=== PATIENT | female | born 1960 | race Caucasian/White ===

== ENCOUNTER 2017-12-12 00:54 | Outpatient (CLI) | payer MEDICAID, SELFPAY ==
[2017-12-12 13:04] LABS: ALT 265 U/L (12-78); AST 101 U/L (15-37); Albumin 3.8 g/dL (3.4-5.0); Alkaline Phosphatase 96 U/L (46-116); Anion Gap 11.2 mmol/L (3-11); BUN 16 mg/dL (7-18); Bilirubin, Total 0.3 mg/dL (0.2-1.0); CO2 29.8 mmol/L (21.0-32.0); CREATININE 0.88 mg/dL (0.55-1.02); Calcium 9.1 mg/dL (8.5-10.1); Chloride 98 mmol/L (98-107); Glucose 168 mg/dL (70-100); Potassium 4.4 mmol/L (3.5-5.1); Sodium 139 mmol/L (136-145); Total Protein 6.9 g/dL (6.4-8.2)
[2017-12-12 13:19] LABS: Cholesterol 191 mg/dL (50-200); HDL Cholesterol 36 mg/dL (40-60); LDL CHOLESTEROL 116 mg/dL (<100); Triglyceride 349 mg/dL (30-150)
[2017-12-12 15:26] LABS: Hemoglobin A1C 7.8 % (4.5-6.2)
== END 2017-12-12 01:14 ==
PROVIDERS: PCP Nurse Practitioner Family; Visit Provider Nurse Practitioner Family
DX: E11.9 Type 2 diabetes mellitus without complications (principal)
CPT/HCPCS: 36415; 80053; 80061; 83721; 83036

== ENCOUNTER 2018-01-17 07:00 | Day surgery (SDC) | payer MEDICAID, SELFPAY ==
--- NOTE | 2018-01-17 06:41 | W.PM.ENDDOP ---
Date of service: 01/17/18 Time of Service: : Endoscopy Report DATE OF PROCEDURE: 01/17/18 PRE-OP DIAGNOSIS: Hx of GERD, Family history of esophageal cancer POST-OP DIAGNOSIS: other (mild chronic gastritis, mild reflux esophagitis, multiple gastric polyps) PROCEDURE: EGD with bx SURGEON: Lien Mata ANESTHESIA: MAC (Salvador Gilmore, [employer] GR[employer] FEEDER / ASA 2) ESTIMATED BLOOD LOSS: 3 PATHOLOGY: other (Gastric antrum bx, Gastric polyp bx, GE junction bx) COMPLICATIONS: None DISPOSITION: same day INDICATIONS: Mrs. Robbins is a pleasant 57-year-old female who was seen in the office for a presumed history of reflux 6 was started 6 years ago. She was started on omeprazole 6 years ago. She has a family history of esophageal cancer. She has no symptoms on the omeprazole. Risks, benefits, complications of the procedure were reviewed with her and she wished to proceed. No guarantees were given or implied. PREP: Miralax/Dulcolax PROCEDURE START TIME: : PROCEDURE END TIME: : FINDINGS: 1. Mild Chronic gastritis 2. Multiple gastric polyps 3. Mild reflux esophagitis PROCEDURE DESCRIPTION: After informed consent was obtained the patient was take to the procedure room and placed in a supine position. Monitors were applied and a time out was done. The patients name, date of , procedure type, allergies to medications and metal in their body was reviewed. A bite block was placed and the patient was sedated. Once sedated and comfortable the gastroscope was introduced and advanced through the oropharynx which was grossly normal into the esophagus. The proximal and mid-esophagus were normal. In the distal esophagus there was mild inflammation noted at the GE junction. The scope was advanced into the stomach and through the pylorus into the 3rd portion of the duodenum. The duodenum was noted to be normal. The scope was retracted back into the stomach and biopsies were done of the antrum to rule out H. pylori. There were no ulcers. The scope was retroflexed. The cardia and fundus were noted to be normal. There was no hiatal hernia noted. There were numerous polyps throughout the stomach. the larger 2 polyps were biopsied. The scope was retracted back into the esophagus and biopsies were done of the GE junction to rule out Shipley's. The Z line was regular. The GE junction was at 36 cm. The scope was removed and the patient was woken up and taken back to [facility] in stable condition. Follow up: as needed unless the biopsies show something unusual. Continue on Omeprazole.
--- NOTE | 2018-01-17 06:43 | PDOC.DSDIS_ITS ---
Discharge Plan Disposition Patient Disposition: HOME Condition: Good Discharge Details Reason For Visit: GERD Attending Provider: Lien Mata Primary Care Provider: Mira Rizzo Home Meds and New Rx's Prescriptions: Continue rosuvastatin 10 mg tablet 10 mg PO DAILY Qty: 90 RF: 4 omeprazole 20 mg capsule,delayed release(DR/EC) 20 mg PO DAILY Qty: 90 RF: 4 losartan-hydrochlorothiazide [Hyzaar] 100-25 mg tablet 1 tab PO QAM Qty: 90 RF: 4 escitalopram oxalate 10 mg tablet 10 mg PO DAILY Qty: 90 RF: 4 lancets [FreeStyle Lancets] 28 gauge misc 1 ea Intradermal DAILY Qty: 100 RF: 4 blood sugar diagnostic [FreeStyle Lite Strips] strip 1 strip Miscellaneous DAILY Qty: 100 RF: 4 albuterol sulfate [ProAir HFA] 90 mcg/actuation HFA aerosol inhaler 2 puff Inhalation .Q4H - Q6H PRN (Reason: shortness of breath or wheezing) Qty: 8.5 RF: 4 albuterol sulfate 2.5 mg /3 mL (0.083 %) solution for nebulization 2.5 mg Inhalation Q4H PRN Qty: 90 RF: 1 benzonatate 100 mg capsule 100 mg PO QID PRNRF: 0 blood-glucose meter [FreeStyle Lite Meter] 1 EACH kit 1 ea Miscellaneous as directed Qty: 1 RF: 0 multivitamin 1 EACH capsule 1 ea PO DAILY RF: 0 ibuprofen 600 MG tablet 600 mg PO BID prn Qty: 180 RF: 4 fluticasone 16 GM spray,suspension 2 spray NS daily prn Qty: 1 RF: 5 loratadine [Claritin Liqui-Gel] 10 MG capsule 10 mg PO DAILY Qty: 90 RF: 3 potassium chloride [Klor-Con M20] 20 MEQ tablet,ER particles/crystals 1 tab PO QAM Qty: 90 RF: 4 metformin 500 mg tablet extended release 24 hr 1,000 mg PO BID Qty: 360 RF: 4 Discharge Instructions Instructions: Upper Endoscopy (DC), Gastric Polyps (DC), Gastritis (DC), Diet for Stomach Ulcers and Gastritis (GEN) Additional Instructions: Findings: Mild chronic gastritis Gastric polyps- most likely due to inflammation and Ant-acid medication Follow up: as needed New Medications: none. Continue Omeprazole daily Please call if you develop: Fevers >101.5 Nausea or Vomiting Abdominal pain that is not transient 1. Because there will be medication in your system for the next 24 hours, you may feel a little sleepy. Your coordination will be affected. Therefore: a. Do not drive or operate dangerous equipment for 24 hours. b. Do not drink alcohol beverages for 24 hours (not even beer). c. Plan to go home and rest for the day. 2. Generally there are no restrictions on your activity after a day or so has gone by, but you may feel a bit fatigued for a few days. 3 After you arrive home you may have a light meal and return to a normal diet as you can tolerate it without feeling sick to your stomach. 4. After surgery, you may feel pain or discomfort. This should be only transient , but if it persists please contact your doctor. 5. If there are any questions regarding the findings of your procedure, please feel free to contact your doctor. 6. If you are unable to contact your doctor with a problem, contact the hospital at [phone]. 7. Continue all your regular medications unless directed otherwise. I understand the above instructions and have no questions. Signature of Patient or Responsible Adult Escort Date/Time Name of Responsible Adult Escort Signature of Nurse Date/Time Activity:: Activity as Tolerated Diet:: low acid Discharge Orders Discharge Orders: Discharge Order (Routine); Ordered 01/17/18 Ordered By: Lien Mata DS: Diagnosis Discharge Diagnosis (1) History of esophagogastroduodenoscopy (EGD): Status: Chronic (2) Chronic gastritis: Status: Acute
[2018-01-17] MEDS: Lactated Ringers 1,000 ML 80 ML IV (07:12)
[2018-01-17 07:22] VITALS: BP 161/97; PULSE 80; RESP 18; TEMP 36.5; O2SAT 95
--- NOTE | 2018-01-17 08:29 | STOM_PTH ---
PATIENT: Dorian Robbins LOC: [facility] U#:[id number] AGE/SX: 57/F ROOM: RE01/17/[address]: Lien Mata MD : 1960 BED: DIS: 01/17/2018 SPEC #: [id number] RECD: 01/17/18 12:44 STATUS: DANIEL RE #: [id number] HARPREET: 01/17/18 08:[address]: Lien Mata DEPT: Surgical Specimen RECD BY: Desiree Saleem ENTERED: 01/17/18 12:45 SP TYPE: STOMACH OTHR DR: Mira Rizzo, [employer] D[employer]LL[employer] HELPER Tissues: 1 - STOMACH BIOPSY 2 - STOMACH BIOPSY 3 - ESOPHAGUS BIOPSY Procedures: GROSS AND MICRO LEVEL 4 Comments: [id number]
[2018-01-17 09:04] VITALS: BP 122/83; PULSE 80; RESP 20; TEMP 37.3; O2SAT 94
== END 2018-01-17 09:25 | disposition home or self-care (01) ==
LOC: SUR 07:01
PROVIDERS: PCP Nurse Practitioner Family; Visit Provider Surgery
PROC: 0DJ68ZZ Inspection of Stomach, Via Natural or Artificial Opening Endoscopic (ICD-10-PCS; CPT 43235; principal; 2018-01-17 08:30)
DX: K21.9 Gastro-esophageal reflux disease without esophagitis (principal); K31.89 Other diseases of stomach and duodenum; K31.7 Polyp of stomach and duodenum; K31.9 Disease of stomach and duodenum, unspecified; Z80.0 Family history of malignant neoplasm of digestive organs; E11.9 Type 2 diabetes mellitus without complications; Z79.84 Long term (current) use of oral hypoglycemic drugs; I10 Essential (primary) hypertension
CPT/HCPCS: 43239; 88305

== ENCOUNTER 2018-03-14 02:19 | Outpatient (CLI) | payer MEDICAID, SELFPAY ==
[2018-03-14 08:20] LABS: Hemoglobin A1C 7.5 % (4.5-6.2)
[2018-03-14 08:48] LABS: ALT 143 U/L (12-78); AST 76 U/L (15-37); Albumin 4.1 g/dL (3.4-5.0); Alkaline Phosphatase 102 U/L (46-116); Anion Gap 8.5 mmol/L (3-11); BUN 15 mg/dL (7-18); Bilirubin, Total 0.5 mg/dL (0.2-1.0); CO2 29.5 mmol/L (21.0-32.0); Chloride 99 mmol/L (98-107); Cholesterol 115 mg/dL (50-200); Estimated GFR 57.35 (mL/min/1.73m2); Glucose 156 mg/dL (70-100); HDL Cholesterol 43 mg/dL (40-60); LDL CHOLESTEROL 51 mg/dL (<100); Magnesium 1.9 mg/dL (1.8-2.4); Potassium 4.4 mmol/L (3.5-5.1); Sodium 137 mmol/L (136-145); Total Protein 7.4 g/dL (6.4-8.2); Triglyceride 126 mg/dL (30-150)
== END 2018-03-14 02:39 ==
PROVIDERS: PCP Nurse Practitioner Family; Visit Provider Nurse Practitioner Family
DX: E11.9 Type 2 diabetes mellitus without complications (principal); E78.5 Hyperlipidemia, unspecified; I10 Essential (primary) hypertension; K76.0 Fatty (change of) liver, not elsewhere classified; K21.9 Gastro-esophageal reflux disease without esophagitis
CPT/HCPCS: 36415; 80053; 80061; 83721; 83036; 83735

== ENCOUNTER 2018-06-19 11:01 | Outpatient (CLI) | payer MEDICAID, SELFPAY ==
[2018-06-19 07:52] LABS: Hemoglobin A1C 7.4 % (4.5-6.2)
[2018-06-19 08:29] LABS: Anion Gap 12.1 mmol/L (3-11); BUN 20 mg/dL (7-18); CO2 28.9 mmol/L (21.0-32.0); CREATININE 0.95 mg/dL (0.55-1.02); Calcium 9.9 mg/dL (8.5-10.1); Chloride 98 mmol/L (98-107); Glucose 127 mg/dL (70-100); Potassium 4.1 mmol/L (3.5-5.1); Sodium 139 mmol/L (136-145)
== END 2018-06-19 11:21 ==
PROVIDERS: PCP Nurse Practitioner Family; Visit Provider Nurse Practitioner Family
DX: E11.9 Type 2 diabetes mellitus without complications (principal)
CPT/HCPCS: 36415; 80048; 83036

== ENCOUNTER 2018-09-18 01:08 | Outpatient (CLI) | payer MEDICAID, SELFPAY ==
[2018-09-18 09:29] LABS: Hemoglobin A1C 6.8 % (4.5-6.2)
[2018-09-18 09:57] LABS: ALT 68 U/L (12-78); AST 27 U/L (15-37); Albumin 3.9 g/dL (3.4-5.0); Alkaline Phosphatase 84 U/L (46-116); Anion Gap 11.9 mmol/L (3-11); BUN 18 mg/dL (7-18); Bilirubin, Total 0.2 mg/dL (0.2-1.0); CO2 30.1 mmol/L (21.0-32.0); CREATININE 0.82 mg/dL (0.55-1.02); Calcium 9.7 mg/dL (8.5-10.1); Chloride 101 mmol/L (98-107); Glucose 126 mg/dL (70-100); Potassium 4.8 mmol/L (3.5-5.1); Sodium 143 mmol/L (136-145)
== END 2018-09-18 01:28 ==
PROVIDERS: PCP Nurse Practitioner Family; Visit Provider Nurse Practitioner Family
DX: E11.9 Type 2 diabetes mellitus without complications (principal); K76.0 Fatty (change of) liver, not elsewhere classified
CPT/HCPCS: 36415; 80053; 83036

== ENCOUNTER 2018-12-19 02:37 | Outpatient (CLI) | payer MEDICAID, SELFPAY ==
[2018-12-19 10:49] LABS: ALT 103 U/L (14-59); AST 50 U/L (15-37); Albumin 4.2 g/dL (3.4-5.0); Alkaline Phosphatase 86 U/L (46-116); Anion Gap 9.1 mmol/L (3-11); BUN 17 mg/dL (7-18); Bilirubin, Total 0.3 mg/dL (0.2-1.0); CO2 30.9 mmol/L (21.0-32.0); CREATININE 0.94 mg/dL (0.55-1.02); Calcium 9.4 mg/dL (8.5-10.1); Chloride 101 mmol/L (98-107); Glucose 149 mg/dL (70-100); Potassium 4.9 mmol/L (3.5-5.1); Sodium 141 mmol/L (136-145); TSH (W/Ref FT4) 3.03 uIU/mL (0.36-3.74); Total Protein 7.3 g/dL (6.4-8.2)
== END 2018-12-19 02:57 ==
PROVIDERS: PCP Nurse Practitioner Family; Visit Provider Nurse Practitioner Family
DX: E11.9 Type 2 diabetes mellitus without complications (principal); R53.83 Other fatigue
CPT/HCPCS: 36415; 80053; 84443

== ENCOUNTER 2019-03-19 02:17 | Outpatient (CLI) | payer MEDICAID, SELFPAY ==
[2019-03-19 08:27] LABS: Anion Gap 10.3 mmol/L (3-11); BUN 15 mg/dL (7-18); CO2 28.7 mmol/L (21.0-32.0); CREATININE 0.95 mg/dL (0.55-1.02); Calcium 8.9 mg/dL (8.5-10.1); Chloride 100 mmol/L (98-107); Glucose 139 mg/dL (74-106); Potassium 4.5 mmol/L (3.5-5.1); Sodium 139 mmol/L (136-145)
[2019-03-19 08:38] LABS: Hemoglobin A1C 6.8 % (3.8-5.6)
== END 2019-03-19 02:37 ==
PROVIDERS: PCP Nurse Practitioner Family; Visit Provider Nurse Practitioner Family
DX: E11.9 Type 2 diabetes mellitus without complications (principal)
CPT/HCPCS: 36415; 80048; 83036

== ENCOUNTER 2019-08-30 12:01 | Outpatient (REF) | payer MEDICAID, SELFPAY ==
[2019-08-30 13:15] LABS: ALT 66 U/L (14-59); AST 26 U/L (15-37); Albumin 4.4 g/dL (3.4-5.0); Alkaline Phosphatase 89 U/L (46-116); Anion Gap 10.8 mmol/L (3-11); BUN 14 mg/dL (7-18); Bilirubin, Total 0.4 mg/dL (0.2-1.0); CO2 29.2 mmol/L (21.0-32.0); CREATININE 0.93 mg/dL (0.55-1.02); Calculated LDL 35 mg/dL (<100); Chloride 98 mmol/L (98-107); Cholesterol 103 mg/dL (<200); Glucose 132 mg/dL (74-106); HDL Cholesterol 43 mg/dL (40-60); Potassium 4.1 mmol/L (3.5-5.1); Sodium 138 mmol/L (136-145); Total Protein 7.4 g/dL (6.4-8.2); Triglyceride 126 mg/dL (<150)
[2019-08-30 13:26] LABS: Hemoglobin A1C 6.5 % (3.8-5.6)
[2019-08-30 14:29] LABS: Vitamin D 25 Total 44.1 ng/ml (30-100)
== END 2019-08-30 12:21 ==
LOC: LBN 12:01
PROVIDERS: PCP Nurse Practitioner Family; Visit Provider Nurse Practitioner Family
DX: E78.5 Hyperlipidemia, unspecified (principal); E11.9 Type 2 diabetes mellitus without complications; Z86.39 Personal history of other endocrine, nutritional and metabolic disease
CPT/HCPCS: 80053; 80061; 82306; 83036

== ENCOUNTER 2019-11-23 11:53 | Outpatient (CLI) | payer MEDICAID, SELFPAY ==
[2019-11-26 19:06] LABS: Patient Race White; SARS-CoV-2 RNA Undetected (Undetected); SARS-CoV-2 Specimen Source Nasopharynx
== END 2019-11-23 12:13 ==
PROVIDERS: PCP Nurse Practitioner Family; Visit Provider Physician Assistant
DX: Z11.59 Encounter for screening for other viral diseases (principal)
CPT/HCPCS: U0003

== ENCOUNTER 2019-11-23 12:17 | Outpatient (REF) | payer MEDICAID, SELFPAY | END 2019-11-23 12:37 | LOC: LBN 12:17 | PROVIDERS: PCP Nurse Practitioner Family; Visit Provider Physician Assistant | DX: J02.9 Acute pharyngitis, unspecified (principal) | CPT/HCPCS: 87070 ==

== ENCOUNTER 2020-02-18 10:58 | Outpatient (CLI) | payer MEDICAID, SELFPAY ==
[2020-02-19 17:56] LABS: COVID-19 RT-PCR UVMMC Result Positive (Negative)
== END 2020-02-18 11:18 ==
PROVIDERS: PCP Nurse Practitioner Family; Visit Provider Nurse Practitioner Family
DX: R05 Cough (principal)
CPT/HCPCS: U0003

== ENCOUNTER 2020-02-20 09:52 | Outpatient (CLI) | payer MEDICAID, SELFPAY ==
[2020-02-20] VITALS (7 sets, daily range): BP systolic 121–165; BP diastolic 81–90; PULSE 81–103; RESP 12–20; TEMP 36.8–37.8; O2SAT 94–96
[2020-02-20] MEDS: Normal Saline Flush 10 ML SYR IVP (12:37)
[2020-02-20] MEDS: Normal Saline 500 ML 30 ML IV (12:38)
== END 2020-02-20 10:12 ==
PROVIDERS: PCP Nurse Practitioner Family; Visit Provider Family Medicine
DX: U07.1 COVID-19 (principal)
CPT/HCPCS: 96365

== ENCOUNTER 2020-03-20 02:49 | Outpatient (CLI) | payer MEDICAID, SELFPAY ==
[2020-03-20 12:21] LABS: Abs Immature Grans 0.05 10^3/uL (0.0-0.06); Absolute Basophil Count 0.06 10^3/uL (0.0-0.2); Absolute Eosinophil Count 0.23 10^3/uL (0.0-0.7); Absolute Lymphocyte Count 4.64 10^3/uL (1.2-3.4); Absolute Monocyte Count 0.35 10^3/uL (0.1-0.8); Absolute Neutrophil Count 4.02 10^3/uL (1.2-6.7); Basophils % 0.6; Eosinophils % 2.5; HCT 41.8 % (36.0-46.0); HGB 13.4 g/dL (11.2-15.7); Immature Grans % 0.5; Lymphocytes % 49.6; MCH 29.5 pg (27.0-33.0); MCHC 32.1 % (32.0-36.0); MCV 92.1 fL (80-95); Monocytes % 3.7; Neutrophils % 43.1; Nucleated RBC 0 %; Platelet Count 324 10^3/uL (130-400); RBC 4.54 10^6/uL (3.93-5.22); RDW 12.4 % (11.7-14.6); RDW-SD 42.2 fL; WBC 9.35 10^3/uL (4.4-10.8)
[2020-03-20 12:41] LABS: Hemoglobin A1C 6.4 % (<5.7)
[2020-03-20 12:42] LABS: ALT 44 U/L (14-59); AST 21 U/L (15-37); Albumin 4.2 g/dL (3.4-5.0); Alkaline Phosphatase 69 U/L (46-116); Anion Gap 7.8 mmol/L (3-11); BUN 14 mg/dL (7-18); Bilirubin, Total 0.3 mg/dL (0.2-1.0); CO2 30.2 mmol/L (21.0-32.0); Calcium 9.5 mg/dL (8.5-10.1); Calculated LDL 29 mg/dL (<100); Chloride 101 mmol/L (98-107); Cholesterol 108 mg/dL (<200); Estimated GFR 56.95 (mL/min/1.73m2); Glucose 114 mg/dL (74-106); HDL Cholesterol 40 mg/dL (40-60); Potassium 3.7 mmol/L (3.5-5.1); Sodium 139 mmol/L (136-145); TSH (W/Ref FT4) 2.08 uIU/mL (0.36-3.74); Total Protein 7.1 g/dL (6.4-8.2); Triglyceride 198 mg/dL (<150)
[2020-03-20 12:54] LABS: Vitamin D 25 Total 72.1 ng/ml (30-100)
== END 2020-03-20 03:09 ==
PROVIDERS: PCP Nurse Practitioner Family; Visit Provider Nurse Practitioner Family
DX: I10 Essential (primary) hypertension (principal); E78.5 Hyperlipidemia, unspecified; E11.9 Type 2 diabetes mellitus without complications; N39.0 Urinary tract infection, site not specified; K76.9 Liver disease, unspecified
CPT/HCPCS: 36415; 80053; 80061; 82306; 83036; 84443; 85025

== ENCOUNTER 2020-03-24 10:20 | Outpatient (CLI) | payer MEDICAID, SELFPAY ==
[2020-03-25 12:37] LABS: COVID-19 RT-PCR UVMMC Result Negative (Negative)
== END 2020-03-24 10:40 ==
PROVIDERS: PCP Nurse Practitioner Family; Visit Provider Nurse Practitioner Family
DX: Z11.52 Encounter for screening for COVID-19 (principal)
CPT/HCPCS: U0003

== ENCOUNTER 2020-03-28 19:53 | Outpatient (REF) | payer MEDICAID, SELFPAY ==
[2020-03-28 21:29] LABS: COMMENT (LAB VIEW ONLY) 314.22 mg/dL; Microalb ug/mg Crea 7.7 ug/mg Cr
== END 2020-03-28 19:54 | disposition home or self-care (01) ==
LOC: LBN 19:53
PROVIDERS: PCP Nurse Practitioner Family; Visit Provider Nurse Practitioner Family
DX: E11.9 Type 2 diabetes mellitus without complications (principal)
CPT/HCPCS: 82043; 82570

== ENCOUNTER 2020-05-10 13:14 | Outpatient (REF) | payer MEDICAID, SELFPAY | END 2020-05-10 13:15 | disposition home or self-care (01) | LOC: LBN 13:14 | PROVIDERS: PCP Nurse Practitioner Family; Visit Provider Nurse Practitioner Family | DX: J02.9 Acute pharyngitis, unspecified (principal) | CPT/HCPCS: 87070 ==

== ENCOUNTER 2020-05-11 16:11 | Outpatient (REF) | payer MEDICAID, SELFPAY ==
[2020-05-12 13:35] LABS: COVID-19 RT-PCR UVMMC Result Negative (Negative)
== END 2020-05-11 16:12 | disposition home or self-care (01) ==
LOC: LBN 16:11
PROVIDERS: PCP Nurse Practitioner Family; Visit Provider Nurse Practitioner Family
DX: Z20.822 Contact with and (suspected) exposure to COVID-19 (principal)
CPT/HCPCS: U0003

== ENCOUNTER 2020-09-18 04:04 | Outpatient (CLI) | payer MEDICAID, SELFPAY ==
[2020-09-18 13:01] LABS: Hemoglobin A1C 6.3 % (<5.7)
== END 2020-09-18 04:05 | disposition home or self-care (01) ==
LOC: LOS 04:04
PROVIDERS: PCP Nurse Practitioner Family; Visit Provider Nurse Practitioner Family
DX: E11.9 Type 2 diabetes mellitus without complications (principal)
CPT/HCPCS: 36415; 83036

== ENCOUNTER 2020-09-18 12:57 | Outpatient (REF) | payer MEDICAID, SELFPAY ==
[2020-09-18 13:34] LABS: Abs Immature Grans 0.02 10^3/uL (0.0-0.06); Absolute Basophil Count 0.05 10^3/uL (0.0-0.2); Absolute Eosinophil Count 0.24 10^3/uL (0.0-0.7); Absolute Lymphocyte Count 2.51 10^3/uL (1.2-3.4); Absolute Monocyte Count 0.35 10^3/uL (0.1-0.8); Absolute Neutrophil Count 3.94 10^3/uL (1.2-6.7); Basophils % 0.7; Eosinophils % 3.4; HCT 39.4 % (36.0-46.0); HGB 12.7 g/dL (11.2-15.7); Immature Grans % 0.3; Lymphocytes % 35.3; MCH 28.9 pg (27.0-33.0); MCHC 32.2 % (32.0-36.0); MCV 89.5 fL (80-95); Monocytes % 4.9; Neutrophils % 55.4; Nucleated RBC 0 %; Platelet Count 293 10^3/uL (130-400); RDW 12.3 % (11.7-14.6); RDW-SD 40.7 fL; WBC 7.11 10^3/uL (4.4-10.8)
[2020-09-18 13:53] LABS: ALT 43 U/L (14-59); AST 21 U/L (15-37); Albumin 4.4 g/dL (3.4-5.0); Alkaline Phosphatase 68 U/L (46-116); Anion Gap 8.9 mmol/L (3-11); BUN 17 mg/dL (7-18); Bilirubin, Total 0.4 mg/dL (0.2-1.0); CO2 30.1 mmol/L (21.0-32.0); CREATININE 0.9 mg/dL (0.55-1.02); Calcium 9.4 mg/dL (8.5-10.1); Chloride 101 mmol/L (98-107); Glucose 94 mg/dL (74-106); Potassium 4.3 mmol/L (3.5-5.1); Sodium 140 mmol/L (136-145); TSH (W/Ref FT4) 1.85 uIU/mL (0.36-3.74); Total Protein 7.1 g/dL (6.4-8.2)
== END 2020-09-18 12:58 | disposition home or self-care (01) ==
LOC: LBN 12:57
PROVIDERS: PCP Nurse Practitioner Family; Visit Provider Nurse Practitioner Family
DX: E11.9 Type 2 diabetes mellitus without complications (principal); B94.8 Sequelae of other specified infectious and parasitic diseases; Z86.16 Personal history of COVID-19
CPT/HCPCS: 80053; 84443; 85025

== ENCOUNTER 2020-12-25 16:47 | Outpatient (REF) | payer MEDICAID, SELFPAY ==
--- NOTE | 2020-12-25 15:25 | PAPFT_PTH ---
PATIENT: Dorian Robbins LOC: [facility] U#:[id number] AGE/SX: 60/F ROOM: RE12/25/[address]: AYLA Millan : 1960 BED: DIS: 12/25/2020 SPEC #: [id number] RECD: 12/26/20 13:07 STATUS: DANIEL HILARIO #: [id number] HARPREET: 12/25/20 15:[address]: Mira Rizzo DEPT: [facility] [place] Cytology RECD BY: Desiree Saleem Tissues: 1 - CX/ENDOCX FOR PAP SMEARS Procedures: PAP THIN PREP/[facility] Screening HPV DNA PROBE Comments: [id number]
== END 2020-12-25 16:48 | disposition home or self-care (01) ==
LOC: LBN 16:47
PROVIDERS: PCP Nurse Practitioner Family; Visit Provider Nurse Practitioner Family
DX: Z12.4 Encounter for screening for malignant neoplasm of cervix (principal); Z11.51 Encounter for screening for human papillomavirus (HPV)
CPT/HCPCS: 88142; 87624

== ENCOUNTER 2021-01-05 12:33 | Outpatient (REF) | payer MEDICAID, SELFPAY ==
[2021-01-06 09:00] LABS: COVID-19 RT-PCR UVMMC Result Negative (Negative)
== END 2021-01-05 12:34 | disposition home or self-care (01) ==
LOC: LBN 12:33
PROVIDERS: PCP Nurse Practitioner Family; Visit Provider Family Medicine
DX: Z20.822 Contact with and (suspected) exposure to COVID-19 (principal); R05.8 Other specified cough
CPT/HCPCS: U0003

== ENCOUNTER 2021-06-05 02:23 | Outpatient (CLI) | payer MEDICAID, SELFPAY ==
[2021-06-05 08:46] LABS: Hemoglobin A1C 6.3 % (<5.7)
== END 2021-06-05 02:24 | disposition home or self-care (01) ==
LOC: LBO 02:23
PROVIDERS: PCP Nurse Practitioner Family; Visit Provider Nurse Practitioner Family
DX: E11.9 Type 2 diabetes mellitus without complications (principal)
CPT/HCPCS: 36415; 83036

== ENCOUNTER → 2021-10-09 00:33 | Outpatient (CLI) | payer MEDICAID, SELFPAY ==
--- NOTE | 2021-10-09 07:15 | DI.DEXA_ITS ---
Exam(s) XR DEXA BONE DENSITY W/WO MARIAH EXAM: XR DEXA BONE DENSITY W/WO MARIAH CLINICAL HISTORY: screening for osteoporosis in postmenopausal woman,z78.0 TECHNIQUE: Tutor Assignment C densitometer analysis of left hip, lumbar spine and left forearm. COMPARISON: 2011 FINDINGS: Lateral view of the thoracic and lumbar spine shows no evidence of compression fractures. Bone mineral density measurements of the lumbar spine correspond to a total T-score of 0.2, in the no rmal range. This is not significantly changed from the prior exam. Bone mineral density measurements of the left hip correspond to a total T-score of -0.1. The femora l neck T-score is -1.2, in the osteopenic range. This represents a 3.5 percent decrease when compare d with 2012. . The left forearm bone mineral density measurements correspond to a T-score of the distal 3rd of 0, i n the normal range.. This represents a 4.1 percent decrease from the prior exam. IMPRESSION: Normal bone mineral density of the lumbar spine and left forearm. Mild osteopenia the left hip.
== END ==
PROVIDERS: PCP Nurse Practitioner Family; Visit Provider Nurse Practitioner Family
DX: Z78.0 Asymptomatic menopausal state (principal); Z13.820 Encounter for screening for osteoporosis; M85.88 Other specified disorders of bone density and structure, other site
CPT/HCPCS: 77080

== ENCOUNTER 2021-12-24 09:57 | Outpatient (CLI) | payer MEDICAID, SELFPAY ==
[2021-12-24 12:35] LABS: Hemoglobin A1C 7.2 % (<5.7)
[2021-12-24 12:47] LABS: ALT 35 U/L (14-59); AST 15 U/L (15-37); Albumin 3.8 g/dL (3.4-5.0); Alkaline Phosphatase 66 U/L (46-116); BUN 18 mg/dL (7-18); Bilirubin, Total 0.4 mg/dL (0.2-1.0); Calcium 9.1 mg/dL (8.5-10.1); Chloride 101 mmol/L (98-107); Estimated GFR 64.49 (mL/min/1.73m2); Glucose 190 mg/dL (74-106); Potassium 4.2 mmol/L (3.5-5.1); Sodium 138 mmol/L (136-145); Total Protein 6.8 g/dL (6.4-8.2)
[2021-12-24 12:54] LABS: HCT 38.6 % (36.0-46.0); HGB 12.8 g/dL (11.2-15.7); MCH 30.3 pg (27.0-33.0); MCHC 33.2 % (32.0-36.0); MCV 92 fL (80-95); MPV 10.3 fL (8.0-11.0); Platelet Count 312 10^3/uL (130-400); RBC 4.22 10^6/uL (3.93-5.22); RDW 12.5 % (11.7-14.6); RDW-SD 41.6 fL; WBC 9.88 10^3/uL (4.4-10.8)
== END 2021-12-24 09:58 | disposition home or self-care (01) ==
LOC: LOS 10:00
PROVIDERS: PCP Nurse Practitioner Family; Visit Provider Nurse Practitioner Family
DX: C50.911 Malignant neoplasm of unspecified site of right female breast (principal); E11.9 Type 2 diabetes mellitus without complications
CPT/HCPCS: 36415; 80053; 85027; 83036

== ENCOUNTER 2022-08-02 04:31 | Outpatient (CLI) | payer MEDICAID, SELFPAY ==
[2022-08-02 12:49] LABS: ALT 33 U/L (14-59); AST 17 U/L (15-37); Alkaline Phosphatase 90 U/L (46-116); Anion Gap 6.7 mmol/L (3-11); BUN 18 mg/dL (7-18); Bilirubin, Total 0.4 mg/dL (0.2-1.0); CO2 32.3 mmol/L (21.0-32.0); Calcium 9.3 mg/dL (8.5-10.1); Chloride 100 mmol/L (98-107); Estimated GFR 64.09 (mL/min/1.73m2); Glucose 130 mg/dL (74-106); Sodium 139 mmol/L (136-145); Total Protein 7.5 g/dL (6.4-8.2)
[2022-08-02 12:53] LABS: Hemoglobin A1C 6.3 % (<5.7)
[2022-08-02 22:02] LABS: Lab Add On Test DONE
[2022-08-02 22:15] LABS: Calculated LDL 49 mg/dL (<100); Cholesterol 125 mg/dL (<200); HDL Cholesterol 52 mg/dL (40-60); Triglyceride 123 mg/dL (<150)
== END 2022-08-02 04:32 | disposition home or self-care (01) ==
LOC: LOS 04:31
PROVIDERS: PCP Nurse Practitioner Family; Visit Provider Nurse Practitioner Family
DX: E78.5 Hyperlipidemia, unspecified (principal); E11.9 Type 2 diabetes mellitus without complications; K76.0 Fatty (change of) liver, not elsewhere classified
CPT/HCPCS: 36415; 80053; 80061; 83036

== ENCOUNTER 2022-08-04 10:04 | Outpatient (REF) | payer MEDICAID, SELFPAY | END 2022-08-04 10:05 | disposition home or self-care (01) | LOC: LBN 10:04 | PROVIDERS: PCP Nurse Practitioner Family; Visit Provider Nurse Practitioner Family | DX: R30.0 Dysuria (principal) | CPT/HCPCS: 87086 ==

== ENCOUNTER 2022-09-26 11:17 | Emergency (ER) | payer MEDICAID, SELFPAY ==
[2022-09-26 11:21] VITALS: BP 136/77; PULSE 79; RESP 16; TEMP 36.7; O2SAT 98
--- NOTE | 2022-09-26 11:30 | DI.RAD_ITS ---
Exam(s) XR FOOT LT COMPLETE EXAM: XR FOOT LT COMPLETE CLINICAL HISTORY: lac rule out FB/ fx. TECHNIQUE: 2D digital imaging was performed. Three views. COMPARISON: No exams were available for comparison FINDINGS: BONES: No acute fracture is present. No bony destructive lesion is seen. JOINTS: No dislocation present. SOFT TISSUE: Gauze seen the medial aspect of the 1st MTP joint. No evidence of foreign body. IMPRESSION: soft tissue laceration. DATA REPOSITORY: RADIATION DOSE DELIVERED:
--- NOTE | 2022-09-26 11:36 | W.ED.GENAD ---
Discharge Plan Disposition Patient Disposition: Home Discharge Details Clinical Impression: Laceration of left foot without foreign body, Essential hypertension, GERD (gastroesophageal reflux disease), Type 2 diabetes mellitus, History of bilateral breast cancer Primary Care Provider: Mira Rizzo ED Provider: Negin Larry Home Meds and New Rx's Prescriptions: New cephalexin 500 mg tablet 500 mg PO Q12H Qty: 10 0RF No Action losartan-hydrochlorothiazide [Hyzaar] 100-25 mg tablet 1 tab PO QAM Qty: 90 3RF omeprazole 20 mg capsule,delayed release(DR/EC) 20 mg PO DAILY Qty: 90 3RF (DME) pen needle, diabetic [Novofine 32] 32 gauge x 1/4 needle See Rx Instructions .ROUTE .MEDSUPPLY Qty: 100 4RF Rx Instructions: Inject liraglutide subcutaneously in upper arm, thigh, or abdomen once a day potassium chloride [Klor-Con M20] 20 mEq tablet,ER particles/crystals 20 meq PO QAM Qty: 90 3RF rosuvastatin 10 mg tablet 10 mg PO DAILY Qty: 90 3RF Rx Instructions: 1 tablet by mouth daily metformin 500 mg tablet extended release 24 hr 1,000 mg PO DAILY Qty: 180 3RF Rx Instructions: Take 2 tablets in the morning escitalopram oxalate 10 mg tablet 10 mg PO DAILY Qty: 90 3RF Rx Instructions: Take 1 tablet by mouth daily liraglutide 0.6 mg/0.1 mL (18 mg/3 mL) pen injector 1.8 mg SC DAILY Qty: 6 4RF Rx Instructions: Inject 1.8mg subcutaneously once daily multivitamin 1 EACH capsule 1 ea PO DAILY albuterol sulfate 2.5 mg /3 mL (0.083 %) solution for nebulization 2.5 mg Inhalation Q4H PRN PRN (Reason: shortness of breath or wheezing) Qty: 90 4RF Rx Instructions: albuterol sulfate 90 mcg/actuation HFA aerosol inhaler 2 puff Inhalation .Q4H - Q6H PRN (Reason: shortness of breath or wheezing) Qty: 8.5 4RF fluticasone propionate 50 mcg/actuation spray,suspension 2 spray NS DAILY PRN (Reason: allergy symptoms) Qty: 15.8 5RF Rx Instructions: 2 sprays into each nostril once a day as needed for allergies ibuprofen 600 mg tablet 600 mg PO BID PRN (Reason: pain) Qty: 180 1RF (DME) lancets [OneTouch Delica Plus Lancet] 33 gauge misc See Rx Instructions .Route Qty: 200 3RF Rx Instructions: Check blood sugar twice a day (DME) blood-glucose meter [OneTouch Ultra2 Meter] Misc See Rx Instructions .Route Qty: 1 3RF Rx Instructions: Check blood sugar twice a day (DME) OneTouch Ultra Test Strip See Rx Instructions .ROUTE .MEDSUPPLY Qty: 200 3RF Rx Instructions: Check blood sugar twice a day loratadine 10 mg tablet 10 mg PO DAILY PRN (Reason: allergy symptoms) Qty: 90 3RF Discharge Instructions Instructions: Laceration (ED) Additional Instructions: 1. Start cephalexin 500 mg every 12 hours for 5 days to prevent infection. We recommend that you take a probiotic while on antibiotics. #2 return here for suture removal in 7 to 10 days. For any signs of infection return here immediately. Alternate acetaminophen every 3 hours with ibuprofen as needed for pain. Wash the wound with mild soap and warm water. Avoid swimming in the ocean or nolen or streams until your sutures have been removed Discharge Data Discharge Date/Time-TO BE ENTERED AT DEPARTURE: 09/26/22 13:01 Discharge Physician: Negin Larry Medical Decision Making This is a 62-year-old female with history of [id number] diabetes who presents with a laceration to the dorsal of her left foot. My plan is to obtain plain films to rule out fracture or foreign body. We will irrigate the wound and sutured it. We will give her prophylactic antibiotics she is a diabetic and this is her foot. She has no evidence of Differential Diagnosis Differential Diagnosis: Laceration rule out foreign body rule out orbital fracture Medical Records Medical records reviewed: Yes I reviewed the patient's medical records. Imaging Data Radiologic Study: Imaging: X-Ray (left foot) My impression: Soft tissue laceration. No evidence of foreign body or fracture. Radiologist's impression: Unremarkable left foot examination. HPI General Date/Time Provider Initiated Documentation: 09/26/22 11:36. Limitations to Documentation: no limitations. Information obtained by: patient and family. History of Present Illness described as moderate, Patient did receive the following treatments prior to arrival, none HPI Narrative: Time seen was 11:31 AM in bed 9. The patient is a 62-year-old female who lacerated the top of her left foot just prior to arrival from a debora jar. She is complaining of constant pain which does not radiate and is aggravated by palpation. They did not wash it prior to arrival but wrapped it and came in here for further evaluation. The patient does have a history of diabetes and heart disease. She is not insulin-dependent. She also has a history of breast cancer and arthritis. She believes that her tetanus is up-to-date. She denies any numbness tingling or loss of function. She denies any previous significant injury to that foot. The pain is constant and aggravated by ambulation and movement. She denies any additional injury Related Data Home Medications Medication Instructions Recorded Confirmed multivitamin 1 ea PO DAILY 08/03/16 09/26/22 albuterol sulfate 2.5 mg/3 mL 2.5 mg (3 mL) inhalation Q4H PRN 12/09/21 09/26/22 (0.083 %) solution for nebulization PRN shortness of breath or wheezing #90 mL albuterol sulfate 90 mcg/actuation 2 puff inhalation .Q4H - Q6H PRN 12/10/21 09/26/22 aerosol inhaler shortness of breath or wheezing #8.5 grams metformin 500 mg tablet,extended 1,000 mg PO DAILY #180 tabs 12/28/21 09/26/22 release 24 hr fluticasone propionate 50 2 spray NS DAILY PRN allergy 12/31/21 09/26/22 mcg/actuation nasal symptoms #15.8 grams spray,suspension escitalopram oxalate 10 mg tablet 10 mg PO DAILY #90 tabs 06/17/22 09/26/22 liraglutide 0.6 mg/0.1 mL (18 mg/3 1.8 mg (0.3 mL) subcut DAILY #6 06/17/22 09/26/22 mL) subcutaneous pen injector SYRGS ibuprofen 600 mg tablet 600 mg PO BID PRN pain #180 09/01/22 09/26/22 tab-caps losartan 100 1 tab PO QAM #90 tabs 09/01/22 09/26/22 mg-hydrochlorothiazide 25 mg tablet (Hyzaar) omeprazole 20 mg capsule,delayed 20 mg PO DAILY #90 tab-caps 09/01/22 09/26/22 release pen needle, diabetic 32 gauge x #100 ea 09/01/22 09/01/2202/24 (Novofine 32) potassium chloride 20 mEq 20 meq PO QAM #90 tabs 09/01/22 09/26/22 tablet,extended release(part/cryst) (Klor-Con M) rosuvastatin 10 mg tablet 10 mg PO DAILY #90 tabs 09/01/22 09/26/22 blood sugar diagnostic (OneTouch #200 ea 09/08/22 Ultra Test strips) blood-glucose meter (OneTouch #1 ea 09/08/22 Ultra2 Meter) lancets 33 gauge (OneTouch Delica #200 ea 09/08/22 Plus Lancet) loratadine 10 mg tablet 10 mg PO DAILY PRN allergy 09/15/22 09/26/22 symptoms #90 tabs cephalexin 500 mg tablet 500 mg PO Q12H #10 tabs 09/26/22 Previous Rx's Medication Instructions Recorded albuterol sulfate 2.5 mg/3 mL 2.5 mg (3 mL) inhalation Q4H PRN 12/09/21 (0.083 %) solution for nebulization PRN shortness of breath or wheezing #90 mL albuterol sulfate 90 mcg/actuation 2 puff inhalation .Q4H - Q6H PRN 12/10/21 aerosol inhaler shortness of breath or wheezing #8.5 grams metformin 500 mg tablet,extended 1,000 mg PO DAILY #180 tabs 12/28/21 release 24 hr fluticasone propionate 50 2 spray NS DAILY PRN allergy 12/31/21 mcg/actuation nasal symptoms #15.8 grams spray,suspension escitalopram oxalate 10 mg tablet 10 mg PO DAILY #90 tabs 06/17/22 liraglutide 0.6 mg/0.1 mL (18 mg/3 1.8 mg (0.3 mL) subcut DAILY #6 06/17/22 mL) subcutaneous pen injector SYRGS ibuprofen 600 mg tablet 600 mg PO BID PRN pain #180 09/01/22 tab-caps losartan 100 1 tab PO QAM #90 tabs 09/01/22 mg-hydrochlorothiazide 25 mg tablet (Hyzaar) omeprazole 20 mg capsule,delayed 20 mg PO DAILY #90 tab-caps 09/01/22 release pen needle, diabetic 32 gauge x #100 ea 09/01/22/ (Novofine 32) potassium chloride 20 mEq 20 meq PO QAM #90 tabs 09/01/22 tablet,extended release(part/cryst) (Klor-Con M) rosuvastatin 10 mg tablet 10 mg PO DAILY #90 tabs 09/01/22 blood sugar diagnostic (OneTouch #200 ea 09/08/22 Ultra Test strips) blood-glucose meter (OneTouch #1 ea 09/08/22 Ultra2 Meter) lancets 33 gauge (OneTouch Delica #200 ea 09/08/22 Plus Lancet) loratadine 10 mg tablet 10 mg PO DAILY PRN allergy 09/15/22 symptoms #90 tabs cephalexin 500 mg tablet 500 mg PO Q12H #10 tabs 09/26/22 Allergies Allergy/AdvReac Type Severity Reaction Status Date / Time bupropion HCl Allergy Hives Verified 09/26/22 11:27 [From Wellbutrin] General Stated Complaint: Laceration VALENTINA: 4 Review of Systems Narrative: see hpi PFSH All Active Problems (Updated 09/26/22 @ 12:46 by Negin Larry MD) Laceration of left foot without foreign body (Acute) History of bilateral breast cancer (Chronic) 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 Right breast IDC 2020 s/p partial mastectomy Type 2 diabetes mellitus (Chronic) Essential hypertension (Chronic) Hyperlipidemia (Chronic) Non-alcoholic fatty liver disease (Chronic) Mild intermittent asthma (Chronic) Depressive disorder (Chronic) GERD (gastroesophageal reflux disease) (Chronic) Chronic gastritis (Chronic) Osteopenia (Chronic) Of left hip, mild, dexa 2021 Osteoarthritis (Chronic) Cervical and lumbar spine Degenerative cervical spinal stenosis (Chronic) MRI 2008 right C5/C6 neural foraminal narrowing Allergic rhinitis (Chronic) w/recurrent sinusitis/bronchitis Sigmoid diverticulosis (Chronic) Deviated nasal septum (Chronic) Constipation (Chronic) Rosacea (Chronic) Obesity (BMI 30-39.9) (Chronic) Medical History (Updated 09/26/22 @ 12:46 by Negin Larry MD) COVID-19 virus infection Positive PCR 02/18/20 and 11/2021 Malignant neoplasm of left breast (~2004) DCIS and LCIS in 2004. Treated with left breast lumpectomy and tamoxifen x 5 yrs Malignant neoplasm of right breast (~10/2020) Invasive Ductal Carcinoma s/p partial mastectomy Post-COVID syndrome 2019, with loss of taste and smell Tubular adenoma of colon On 2022 colonoscopy Surgical History History of bilateral tubal ligation History of section (03/08/84) 03/08/1984 and 04/03/1987 S/P colonoscopy (11/02/11) S/P lumpectomy, left breast (~2004) Status post hysteroscopy (~12/26/09) Negative biopsy, for postmenopausal bleeding Status post partial mastectomy of right breast (12/29/20) Family History Mother , at 54 of metastatic esophagus and stomach cancer Alcohol abuse Heart disease Smoker Esophageal cancer Hyperlipidemia Hypertension Father Hyperlipidemia Hypertension Melanoma Heart disease Stents in place Valvular heart disease Brother Alcohol abuse Asthma Depression Son Substance abuse heroin Son No problems noted. Paternal Grandfather , at 76 Heart disease Type 2 diabetes mellitus Paternal Grandmother , at 73 Asthma Maternal Grandfather , at 60 Type 2 diabetes mellitus Esophageal cancer Lung cancer Heart disease Maternal Grandmother Liver disease due to alcohol Alcohol abuse Social History Smoking/Tobacco Use Status: Never Smoking risk assessment performed?: Yes Alcohol Intake: current Alcohol Intake frequency: a few times a month Alcohol type: beer, wine and hard liquor Drug use: Rarely Substance use type: marijuana Details: ate THC cookies R/T [place] Household members: spouse Housing: house Communication Needs: None Do you need help understanding health information?: Rarely Pets and animals: No Sexually active: Yes Do you think of yourself as: straight/heterosexual Current gender identity: female What is your relationship status?: How often do you talk on the phone with friends or family?: three or more times per week How often do you get together with friends or relatives?: once per week How often do you attend adventist or congregation services?: 1-3 times per year Do you belong to any clubs or organized social groups?: yes Panel score (0-1 are the most socially isolated patients): 3 What type of physical activity do you participate in: walking Duration: 30-45 minutes/day Frequency: 5-6 times per week Sweta/Adventist: Spiritism Special sweta needs: No Seatbelt use: always Drive intox or ride w/intox furniture delivery driver: No Do you feel safe in your relationship?: Yes Female Reproductive History Menstrual Menopause type: natural History History 2 Para 2 Hx # Term Pregnancies Multiple births Hx # Pregnancies Ectopic pregnancies AB induced Hx Number of Living Children 2 AB spontaneous Exam Const General: cooperative, healthy appearing, comfortable, no acute distress, well developed, well groomed and well hydrated Nutritional Appearance: average body habitus and well nourished Orientation: alert, awake and oriented x3 HENMT Head: normal to inspection, normocephalic and atraumatic Ears: hearing grossly normal bilaterally and external ears normal General nose exam: external nose normal, nares normal and no nasal discharge Face and sinus: normal facial exam, sinuses nontender and face symmetric Mouth: oral mucosae normal, lip normal, tongue normal, oropharynx normal, moist mucous membranes and other (Normal phonation. The patient is handling secretions.) Throat: posterior oropharynx normal and uvula midline Eyes General: appearance normal, both eyes and all related structures Eyelids: eyelids normal Conjunctivae: conjunctivae normal Sclera: sclerae normal Cornea: corneas normal Pupils: PERRL EOM: EOM intact bilaterally and No nystagmus Neck Neck: normal visual inspection, full ROM, no lymphadenopathy, no meningeal signs, trachea midline and supple Lymphatic: no lymphadenopathy noted Chest Chest: normal inspection of the chest Resp Effort & Inspection: normal respiratory effort, able to speak in complete sentences, no audible wheezes, no nasal flaring, no respiratory distress, no retractions, no stridor, not tachypneic, no tracheal deviation, no use of accessory muscles, No prolonged expiratory phase and other (Normal inspiratory to expiratory ratio.) Auscultation: clear to auscultation bilaterally, no rales, no rhonchi, no wheezes and no rubs Tactile Fremitus: tactile fremitus absent Cardio Jugular venous pressure: no JVD Palpation: normal PMI Rate: regular rate Rhythm: regular rhythm Heart Sounds: S1 normal, S2 normal, no gallops, no murmurs and no rubs GI Inspection: normal to inspection and non-distended Palpation: soft, no hepatosplenomegaly, no guarding and nontender Percussion: normal to percussion Auscultation: normal bowel sounds General: No CVA tenderness Back/Spine/Pelvis Back: no CVA tenderness and No back tenderness Cervical Spine: normal cervical lordosis, cervical ROM normal, No cervical muscular tenderness, No pain with cervical ROM, No cervical spinal tenderness and No step off deformity Thoracic/Lumbar Spine: thoracic and lumbar spine normal to inspection, No thoracic spinal tenderness and No lumbar spinal tenderness Pelvis: no pain with anterior-posterior compression and no pain with lateral compression Skin General skin exam: no rashes or lesions noted, turgor normal, no petechiae, no purpura and other (Skin is normal for ethnicity.) Lesions: no lesions Rashes: no rashes Wounds: wounds noted Other: There is a 4 cm laceration to the dorsum of the left foot. It is through the subcutaneous tissue. The wound edges are well approximated. She is neurovascularly intact. There is no evidence of tendon dysfunction. There is minimal bleeding at this time. Neuro General: patient alert, patient awake, patient oriented x3, moves all extremities, no meningeal signs, no focal motor deficits and CN's II-XI intact bilaterally Cranial Nerves: CN's II-XI intact bilaterally, PERRL, accommodation normal, EOM intact bilaterally, no nystagmus, facial strength normal, tongue midline, hearing normal and no nystagmus Cognition: normal cognition Speech: speech normal Gait: normal gait Motor: muscle tone normal throughout and strength 5/5 throughout Sensory Exam: no sensory deficits noted Extrem General: normal exam except as noted and no clubbing, cyanosis or edema Right upper extremity: normal to inspection Left upper extremity: normal to inspection Right lower extremity: normal to inspection Other: Laceration as described above. She is neurovascularly intact Psych Appearance: grossly normal Affect: normal affect Attitude: cooperative Thought Process: normal Thought Content: normal Insight: insight good Judgment: judgment good Other: The patient appears to have capacity make medical decisions. Course Vital Signs Vital signs: Vital Signs Temperature 36.7 C 09/26/22 11:21 Pulse 79 09/26/22 11:21 Respiratory Rate 16 09/26/22 11:21 Blood Pressure 136/77 09/26/22 11:21 Pulse Oximetry 98 09/26/22 11:21 Temperature 36.7 C 09/26/22 11:21 Pulse 79 09/26/22 11:21 Respiratory Rate 16 09/26/22 11:21 Respiratory Effort Normal 09/26/22 11:25 Blood Pressure 136/77 09/26/22 11:21 Blood Pressure Position Sitting 09/26/22 11:21 Pulse Oximetry 98 09/26/22 11:21 Oxygen Delivery Method Room Air 09/26/22 11:21 Oxygen Flow Rate 0 09/26/22 11:21 Pain Level 6 09/26/22 11:21 Procedures Laceration Laceration 1: Site: lower extremity (Dorsal left foot) Side (If applicable): left Size (cm): 4 Description: linear Depth: simple, single layer Local Anesthetic: Lidocaine 1% Amount of anesthesia used (mL): 4 Pre-repair: wound explored, irrigated extensively and deep structures intact Skin layer closed with: nylon Size (cm): 4-0 (Ethilon) Number of sutures: 3 Technique: simple, interrupted Other Description: The wound was explored. No foreign body was noted. Tendons were not visualized but were functionally intact. The patient tolerated the procedure well. PAWSS Have you Been Recently Intoxicated or Drunk Within the Last 30 days?: No Have you Ever Experienced Previous Episodes of Alcohol Withdrawal?: No Have you ever Experienced Withdrawal Seizures?: No Have you ever Experienced Delirium Tremens(DT)s?: No Have you ever undergone Alcohol Rehabilitation Treatment (i.e, inpt ot outpatient treatment programs)?: No Have you ever Experienced Blackouts?: No Have you ever Combined Alcohol with other Downers within the last 90 days?: No Have you ever Combined Alcohol with any other Substance of Abuse during the last 90 days?: No Result: 0
[2022-09-26] MEDS: Cephalexin 500 MG CAP PO (11:50)
--- NOTE | 2022-09-26 12:09 | DI.VRAD_ITS ---
Addendum created by Victor Hugo Rondon MD on 09/26/2022 2:21:04 PM EDT: The left foot was performed not the ordered right foot. Initial report created on 09/26/2022 12:09:17 PM EDT: PROCEDURE INFORMATION: Exam: XR Right Foot Exam date and time: 09/26/2022 12:02 PM Age: 62 years old Clinical indication: Injury or trauma; Other: Lac rule out fb/ FX; Laceration; Foot; Right; With foreign body TECHNIQUE: Imaging protocol: Radiologic exam of the right foot. Views: 3 or more views. Non-weightbearing AP, oblique and lateral images. COMPARISON: No relevant prior studies available. FINDINGS: Bones/joints: The bones are well mineralized. The joint spaces are preserved. Examination negative for fracture, dislocation, periostitis or osteolysis. Soft tissues: No significant edema. No soft tissue gas or radiopaque foreign body. IMPRESSION: Unremarkable left foot examination. Dictated and Authenticated by: Victor Hugo Rondon MD. Ordering:NOMAN Kam MD
== END 2022-09-26 13:01 | disposition home or self-care (01) ==
PROVIDERS: Emergency Provider Emergency Medicine Emergency Medical Services; PCP Nurse Practitioner Family
DX: S91.312A Laceration without foreign body, left foot, initial encounter (principal); K21.9 Gastro-esophageal reflux disease without esophagitis; E11.9 Type 2 diabetes mellitus without complications; I10 Essential (primary) hypertension; W25.XXXA Contact with sharp glass, initial encounter
CPT/HCPCS: 12002; 99283; 73630; 99284

== ENCOUNTER 2022-10-04 16:38 | Emergency (ER) | payer MEDICAID, SELFPAY ==
[2022-10-04 16:40] VITALS: BP 119/76; PULSE 98; RESP 15; TEMP 36.8; O2SAT 98
--- NOTE | 2022-10-04 16:47 | ED.GENADUL_ITS ---
Discharge Plan Disposition Patient Disposition: Home Condition: Stable Discharge Details Clinical Impression: Wound of left foot Primary Care Provider: Mira Rizzo ED Provider: Santo Almodovar Home Meds and New Rx's Prescriptions: Continued losartan-hydrochlorothiazide [Hyzaar] 100-25 mg tablet 1 tab PO QAM Qty: 90 3RF omeprazole 20 mg capsule,delayed release(DR/EC) 20 mg PO DAILY Qty: 90 3RF (DME) pen needle, diabetic [Novofine 32] 32 gauge x 1/4 needle See Rx Instructions .ROUTE .MEDSUPPLY Qty: 100 4RF Rx Instructions: Inject liraglutide subcutaneously in upper arm, thigh, or abdomen once a day potassium chloride [Klor-Con M20] 20 mEq tablet,ER particles/crystals 20 meq PO QAM Qty: 90 3RF rosuvastatin 10 mg tablet 10 mg PO DAILY Qty: 90 3RF Rx Instructions: 1 tablet by mouth daily metformin 500 mg tablet extended release 24 hr 1,000 mg PO DAILY Qty: 180 3RF Rx Instructions: Take 2 tablets in the morning escitalopram oxalate 10 mg tablet 10 mg PO DAILY Qty: 90 3RF Rx Instructions: Take 1 tablet by mouth daily liraglutide 0.6 mg/0.1 mL (18 mg/3 mL) pen injector 1.8 mg SC DAILY Qty: 6 4RF Rx Instructions: Inject 1.8mg subcutaneously once daily multivitamin 1 EACH capsule 1 ea PO DAILY albuterol sulfate 2.5 mg /3 mL (0.083 %) solution for nebulization 2.5 mg Inhalation Q4H PRN PRN (Reason: shortness of breath or wheezing) Qty: 90 4RF Rx Instructions: albuterol sulfate 90 mcg/actuation HFA aerosol inhaler 2 puff Inhalation .Q4H - Q6H PRN (Reason: shortness of breath or wheezing) Qty: 8.5 4RF fluticasone propionate 50 mcg/actuation spray,suspension 2 spray NS DAILY PRN (Reason: allergy symptoms) Qty: 15.8 5RF Rx Instructions: 2 sprays into each nostril once a day as needed for allergies ibuprofen 600 mg tablet 600 mg PO BID PRN (Reason: pain) Qty: 180 1RF (DME) lancets [OneTouch Delica Plus Lancet] 33 gauge misc See Rx Instructions .Route Qty: 200 3RF Rx Instructions: Check blood sugar twice a day (DME) blood-glucose meter [OneTouch Ultra2 Meter] Misc See Rx Instructions .Route Qty: 1 3RF Rx Instructions: Check blood sugar twice a day (DME) OneTouch Ultra Test Strip See Rx Instructions .ROUTE .MEDSUPPLY Qty: 200 3RF Rx Instructions: Check blood sugar twice a day loratadine 10 mg tablet 10 mg PO DAILY PRN (Reason: allergy symptoms) Qty: 90 3RF cephalexin 500 mg tablet 500 mg PO Q12H Qty: 10 0RF Discharge Instructions Additional Instructions: If you have spreading redness from the wound or severe pain return to the emergency department. The wound appears well healed and should not cause any further issues at this time. Medical Decision Making 62 yo female comes in with request for suture removal. Had 3 sutures placed in the left medial foot a week ago after sustaining a laceration, no fevers, drainage or pain. She arrives stable ambulating without a limp. No erythema, no warmth, no discharge, wound is well healed and ready for suture removal which nursing will do. Return precautions given Differential Diagnosis Differential Diagnosis: lac, wound HPI General Mode of arrival: ambulatory . Date/Time Provider Initiated Documentation: 10/04/22 16:44 . Limitations to Documentation: no limitations . Information obtained by: patient . History of Present Illness 62 year old F presents to the emergency department with the chief complaint of left foot wound stitch removal , described as moderate, No relieving factors improve symptom(s), No exacerbating factors reported . Patient notes no other symptoms.. Patient did receive the following treatments prior to arrival, none Related Data Home Medications Medication Instructions Recorded Confirmed multivitamin 1 ea PO DAILY 08/03/16 09/26/22 albuterol sulfate 2.5 mg/3 mL 2.5 mg (3 mL) inhalation Q4H PRN 12/09/21 09/26/22 (0.083 %) solution for nebulization PRN shortness of breath or wheezing #90 mL albuterol sulfate 90 mcg/actuation 2 puff inhalation .Q4H - Q6H PRN 12/10/21 09/26/22 aerosol inhaler shortness of breath or wheezing #8.5 grams metformin 500 mg tablet,extended 1,000 mg PO DAILY #180 tabs 12/28/21 09/26/22 release 24 hr fluticasone propionate 50 2 spray NS DAILY PRN allergy 12/31/21 09/26/22 mcg/actuation nasal symptoms #15.8 grams spray,suspension escitalopram oxalate 10 mg tablet 10 mg PO DAILY #90 tabs 06/17/22 09/26/22 liraglutide 0.6 mg/0.1 mL (18 mg/3 1.8 mg (0.3 mL) subcut DAILY #6 06/17/22 09/26/22 mL) subcutaneous pen injector SYRGS ibuprofen 600 mg tablet 600 mg PO BID PRN pain #180 09/01/22 09/26/22 tab-caps losartan 100 1 tab PO QAM #90 tabs 09/01/22 09/26/22 mg-hydrochlorothiazide 25 mg tablet (Hyzaar) omeprazole 20 mg capsule,delayed 20 mg PO DAILY #90 tab-caps 09/01/22 09/26/22 release pen needle, diabetic 32 gauge x #100 ea 09/01/22 09/01/2202/24 (Novofine 32) potassium chloride 20 mEq 20 meq PO QAM #90 tabs 09/01/22 09/26/22 tablet,extended release(part/cryst) (Klor-Con M) rosuvastatin 10 mg tablet 10 mg PO DAILY #90 tabs 09/01/22 09/26/22 blood sugar diagnostic (OneTouch #200 ea 09/08/22 Ultra Test strips) blood-glucose meter (OneTouch #1 ea 09/08/22 Ultra2 Meter) lancets 33 gauge (OneTouch Delica #200 ea 09/08/22 Plus Lancet) loratadine 10 mg tablet 10 mg PO DAILY PRN allergy 09/15/22 09/26/22 symptoms #90 tabs cephalexin 500 mg tablet 500 mg PO Q12H #10 tabs 09/26/22 Previous Rx's Medication Instructions Recorded albuterol sulfate 2.5 mg/3 mL 2.5 mg (3 mL) inhalation Q4H PRN 12/09/21 (0.083 %) solution for nebulization PRN shortness of breath or wheezing #90 mL albuterol sulfate 90 mcg/actuation 2 puff inhalation .Q4H - Q6H PRN 10/20/22 aerosol inhaler shortness of breath or wheezing #8.5 grams metformin 500 mg tablet,extended 1,000 mg PO DAILY #180 tabs 12/28/21 release 24 hr fluticasone propionate 50 2 spray NS DAILY PRN allergy 12/31/21 mcg/actuation nasal symptoms #15.8 grams spray,suspension escitalopram oxalate 10 mg tablet 10 mg PO DAILY #90 tabs 06/17/22 liraglutide 0.6 mg/0.1 mL (18 mg/3 1.8 mg (0.3 mL) subcut DAILY #6 06/17/22 mL) subcutaneous pen injector SYRGS ibuprofen 600 mg tablet 600 mg PO BID PRN pain #180 09/01/22 tab-caps losartan 100 1 tab PO QAM #90 tabs 09/01/22 mg-hydrochlorothiazide 25 mg tablet (Hyzaar) omeprazole 20 mg capsule,delayed 20 mg PO DAILY #90 tab-caps 09/01/22 release pen needle, diabetic 32 gauge x #100 ea 09/01/2202/24 (Novofine 32) potassium chloride 20 mEq 20 meq PO QAM #90 tabs 09/01/22 tablet,extended release(part/cryst) (Klor-Con M) rosuvastatin 10 mg tablet 10 mg PO DAILY #90 tabs 09/01/22 blood sugar diagnostic (OneTouch #200 ea 09/08/22 Ultra Test strips) blood-glucose meter (OneTouch #1 ea 09/08/22 Ultra2 Meter) lancets 33 gauge (OneTouch Delica #200 ea 09/08/22 Plus Lancet) loratadine 10 mg tablet 10 mg PO DAILY PRN allergy 09/15/22 symptoms #90 tabs cephalexin 500 mg tablet 500 mg PO Q12H #10 tabs 09/26/22 Allergies Allergy/AdvReac Type Severity Reaction Status Date / Time bupropion HCl Allergy Hives Verified 09/26/22 11:27 [From Wellbutrin] General Stated Complaint: SutureRem VALENTINA: 4 Review of Systems All systems reviewed & are unremarkable except as noted in HPI and below Constitutional Constitutional: Denies chills, Denies fever(s) and Denies weakness Cardiovascular Cardiovascular: Denies chest pain and Denies dyspnea Respiratory Respiratory: Denies cough and Denies dyspnea Gastrointestinal Gastrointestinal: Denies abdominal pain, Denies nausea and Denies vomiting Integumentary/Breasts Skin/Breast: Denies rash Neurologic Neurologic: Denies weakness PFSH All Active Problems (Updated 10/04/22 @ 16:48 by Santo Almodovar MD) Laceration of left foot without foreign body (Acute) Wound of left foot (Acute) History of bilateral breast cancer (Chronic) 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 Right breast IDC 2020 s/p partial mastectomy Type 2 diabetes mellitus (Chronic) Essential hypertension (Chronic) Hyperlipidemia (Chronic) Non-alcoholic fatty liver disease (Chronic) Mild intermittent asthma (Chronic) Depressive disorder (Chronic) GERD (gastroesophageal reflux disease) (Chronic) Chronic gastritis (Chronic) Osteopenia (Chronic) Of left hip, mild, dexa 2021 Osteoarthritis (Chronic) Cervical and lumbar spine Degenerative cervical spinal stenosis (Chronic) MRI 2008 right C5/C6 neural foraminal narrowing Allergic rhinitis (Chronic) w/recurrent sinusitis/bronchitis Sigmoid diverticulosis (Chronic) Deviated nasal septum (Chronic) Constipation (Chronic) Rosacea (Chronic) Obesity (BMI 30-39.9) (Chronic) Medical History (Updated 10/04/22 @ 16:48 by Santo Almodovar MD) COVID-19 virus infection Positive PCR 02/18/20 and 11/2021 Malignant neoplasm of left breast (~2004) DCIS and LCIS in 2004. Treated with left breast lumpectomy and tamoxifen x 5 yrs Malignant neoplasm of right breast (~10/2020) Invasive Ductal Carcinoma s/p partial mastectomy Post-COVID syndrome 2019, with loss of taste and smell Tubular adenoma of colon On 2022 colonoscopy Surgical History History of bilateral tubal ligation History of section (03/08/84) 03/08/1984 and 04/03/1987 S/P colonoscopy (11/02/11) S/P lumpectomy, left breast (~2004) Status post hysteroscopy (~12/26/09) Negative biopsy, for postmenopausal bleeding Status post partial mastectomy of right breast (12/29/20) Family History Mother , at 54 of metastatic esophagus and stomach cancer Alcohol abuse Heart disease Smoker Esophageal cancer Hyperlipidemia Hypertension Father Hyperlipidemia Hypertension Melanoma Heart disease Stents in place Valvular heart disease Brother Alcohol abuse Asthma Depression Son Substance abuse heroin Son No problems noted. Paternal Grandfather , at 76 Heart disease Type 2 diabetes mellitus Paternal Grandmother , at 73 Asthma Maternal Grandfather , at 60 Type 2 diabetes mellitus Esophageal cancer Lung cancer Heart disease Maternal Grandmother Liver disease due to alcohol Alcohol abuse Social History Smoking/Tobacco Use Status: Never Smoking risk assessment performed?: Yes Alcohol Intake: current Alcohol Intake frequency: a few times a month Alcohol type: beer, wine and hard liquor Drug use: Rarely Substance use type: marijuana Details: ate THC cookies R/T [place] Household members: spouse Housing: house Communication Needs: None Do you need help understanding health information?: Rarely Pets and animals: No Sexually active: Yes Do you think of yourself as: straight/heterosexual Current gender identity: female What is your relationship status?: How often do you talk on the phone with friends or family?: three or more times per week How often do you get together with friends or relatives?: once per week How often do you attend mormonism or latter-day services?: 1-3 times per year Do you belong to any clubs or organized social groups?: yes Panel score (0-1 are the most socially isolated patients): 3 What type of physical activity do you participate in: walking Duration: 30-45 minutes/day Frequency: 5-6 times per week Sweta/Caodaism: Christian Special sweta needs: No Seatbelt use: always Drive intox or ride w/intox test driver: No Do you feel safe in your relationship?: Yes Female Reproductive History Menstrual Menopause type: natural History History 2 Para 2 Hx # Term Pregnancies Multiple births Hx # Pregnancies Ectopic pregnancies AB induced Hx Number of Living Children 2 AB spontaneous Exam Const General: no acute distress Orientation: alert HENMT Head: normal to inspection Ears: external ears normal General nose exam: external nose normal Mouth: moist mucous membranes Eyes General: appearance normal, both eyes and all related structures Neck Neck: normal visual inspection Resp Effort & Inspection: normal respiratory effort and able to speak in complete sentences Cardio Rate: regular rate Skin General skin exam: elasticity normal and turgor normal Neuro General: patient alert and patient oriented x3 Extrem General: full ROM and capillary refill normal Psych Mental Status: mental status grossly normal Course Vital Signs Vital signs: Vital Signs Temperature 36.8 C 10/04/22 16:40 Pulse 98 H 10/04/22 16:40 Respiratory Rate 15 10/04/22 16:40 Blood Pressure 119/76 10/04/22 16:40 Pulse Oximetry 98 10/04/22 16:40 Temperature 36.8 C 10/04/22 16:40 Temperature Source Temporal Artery Scan 10/04/22 16:40 Pulse 98 H 10/04/22 16:40 Respiratory Rate 15 10/04/22 16:40 Respiratory Effort Normal 10/04/22 16:42 Blood Pressure 119/76 10/04/22 16:40 Blood Pressure Position Sitting 10/04/22 16:40 Pulse Oximetry 98 10/04/22 16:40 Oxygen Delivery Method Room Air 10/04/22 16:40 Oxygen Flow Rate 0 10/04/22 16:40 Pain Level 0 10/04/22 16:40
== END 2022-10-04 16:54 | disposition home or self-care (01) ==
PROVIDERS: Emergency Provider Emergency Medicine; PCP Nurse Practitioner Family
DX: Z48.02 Encounter for removal of sutures (principal)

== ENCOUNTER 2023-07-13 05:03 | Outpatient (CLI) | payer MEDICAID, SELFPAY ==
[2023-07-13 13:17] LABS: Abs Immature Grans 0.03 10^3/uL (0.0-0.06); Absolute Basophil Count 0.04 10^3/uL (0.0-0.2); Absolute Eosinophil Count 0.13 10^3/uL (0.0-0.7); Absolute Lymphocyte Count 2.13 10^3/uL (1.2-3.4); Absolute Neutrophil Count 2.83 10^3/uL (1.2-6.7); Basophils % 0.7 %; Eosinophils % 2.4 %; HCT 40.6 % (36.0-46.0); HGB 12.9 g/dL (11.2-15.7); Immature Grans % 0.5 %; MCH 29.9 pg (27.0-33.0); MCHC 31.8 % (32.0-36.0); MCV 94 fL (80-95); MPV 10.6 fL (8.0-11.0); Monocytes % 5.5 %; Neutrophils % 51.9 %; Platelet Count 298 10^3/uL (130-400); RBC 4.31 10^6/uL (3.93-5.22); RDW 12.3 % (11.7-14.6); RDW-SD 42.6 fL; WBC 5.46 10^3/uL (4.4-10.8)
[2023-07-13 14:10] LABS: ALT 55 U/L (14-59); AST 25 U/L (15-37); Albumin 3.9 g/dL (3.4-5.0); Alkaline Phosphatase 76 U/L (46-116); Anion Gap 5.5 mmol/L (3-11); BUN 11 mg/dL (7-18); Bilirubin, Total 0.4 mg/dL (0.2-1.0); CO2 29.5 mmol/L (21.0-32.0); CREATININE 0.9 mg/dL (0.55-1.02); Calcium 9.4 mg/dL (8.5-10.1); Calculated LDL 105 mg/dL (<100); Chloride 103 mmol/L (98-107); Cholesterol 191 mg/dL (<200); Estimated GFR 72.28 (mL/min/1.73m2); Glucose 120 mg/dL (74-106); HDL Cholesterol 47 mg/dL (40-60); Potassium 4.1 mmol/L (3.5-5.1); Sodium 138 mmol/L (136-145); Triglyceride 197 mg/dL (<150)
[2023-07-13 14:26] LABS: Hemoglobin A1C 6.6 % (<5.7)
[2023-07-13 19:30] LABS: Hepatitis C Ab w Rflx HCV PCR Negative (Negative)
== END 2023-07-13 05:04 | disposition home or self-care (01) ==
LOC: LOS 05:03
PROVIDERS: PCP Nurse Practitioner Family; Visit Provider Nurse Practitioner Family
DX: Z85.3 Personal history of malignant neoplasm of breast (principal); E11.9 Type 2 diabetes mellitus without complications; E78.5 Hyperlipidemia, unspecified; Z11.59 Encounter for screening for other viral diseases
CPT/HCPCS: 36415; 80053; 80061; 86803; 83036; 85025

== ENCOUNTER → 2023-07-25 03:53 | Outpatient (CLI) | payer MEDICAID, SELFPAY ==
--- NOTE | 2023-07-25 07:30 | DI.RAD_ITS ---
Exam(s) XR SHOULDER RT COMPLETE 2+V EXAM: XR SHOULDER RT COMPLETE 2+V CLINICAL HISTORY: chronic right shoulder pain, M25.511, G89.29 other chronic pain. TECHNIQUE: 2D digital imaging was performed of the right shoulder. Five images were obtained. AP, Grashey, Y-view and axillary views were obtained. COMPARISON: No priors for comparison. FINDINGS: BONES: No acute fracture is present. No bony destructive lesion is seen. JOINTS: No dislocation present. There are degenerative changes seen at the acromioclavicular joint. The glenohumeral joint is well maintained. SOFT TISSUE: The visualized lungs are clear. IMPRESSION: Degenerative changes in the right AC joint. DATA REPOSITORY: RADIATION DOSE DELIVERED:
== END ==
PROVIDERS: PCP Nurse Practitioner Family; Visit Provider Nurse Practitioner Family
DX: M25.511 Pain in right shoulder (principal); G89.29 Other chronic pain
CPT/HCPCS: 73030

== ENCOUNTER 2024-01-02 21:06 | Outpatient (REF) | payer MEDICAID, SELFPAY ==
[2024-01-02 21:48] LABS: COMMENT (LAB VIEW ONLY) 65.14 mg/dL; Microalb ug/mg Crea 8.8 ug/mg Cr
== END 2024-01-02 21:07 | disposition home or self-care (01) ==
LOC: LBN 21:06
PROVIDERS: PCP Nurse Practitioner Family; Visit Provider Nurse Practitioner Family
DX: E11.9 Type 2 diabetes mellitus without complications (principal)
CPT/HCPCS: 82043; 82570

== ENCOUNTER 2024-06-07 01:10 | Outpatient (CLI) | payer MEDICAID, SELFPAY ==
[2024-06-07 09:01] LABS: Hemoglobin A1C 6.5 % (<5.7)
[2024-06-07 09:59] LABS: ALT 111 U/L (14-59); AST 45 U/L (15-37); Albumin 3.9 g/dL (3.4-5.0); Alkaline Phosphatase 101 U/L (46-116); Anion Gap 8.4 mmol/L (3-11); BUN 18 mg/dL (7-18); Bilirubin, Total 0.3 mg/dL (0.2-1.0); CO2 32.6 mmol/L (21.0-32.0); Calcium 9.6 mg/dL (8.5-10.1); Calculated LDL 129 mg/dL (<100); Chloride 101 mmol/L (98-107); Cholesterol 242 mg/dL (<200); Glucose 152 mg/dL (74-106); HDL Cholesterol 45 mg/dL (>or=50); Potassium 4.8 mmol/L (3.5-5.1); Sodium 142 mmol/L (136-145); Total Protein 7.1 g/dL (6.4-8.2); Triglyceride 340 mg/dL (<150)
[2024-06-08 10:17] LABS: HIV-1/2 Ag & Ab Screen Negative (Negative)
[2024-06-08 10:32] LABS: HBs Antibody, Quant <3.1 mIU/mL (See Note); Hep B Surface Ab Negative (See Note); Hepatitis B Core Antibody Negative (Negative); Hepatitis B Surface Antigen Negative (Negative)
== END 2024-06-07 01:11 | disposition home or self-care (01) ==
LOC: LBO 01:10
PROVIDERS: PCP Nurse Practitioner Family; Visit Provider Nurse Practitioner Family
DX: E11.9 Type 2 diabetes mellitus without complications (principal); Z11.4 Encounter for screening for human immunodeficiency virus [HIV]; I10 Essential (primary) hypertension; Z11.59 Encounter for screening for other viral diseases
CPT/HCPCS: 36415; 80053; 80061; 86704; 86706; 87340; 87389; 83036

== ENCOUNTER 2024-06-11 08:21 | Outpatient (REF) | payer MEDICAID, SELFPAY ==
--- NOTE | 2024-06-11 08:04 | PAPFT_PTH ---
PATIENT: Dorian Robbins LOC: [facility] U#:[id number] AGE/SX: 64/F ROOM: RE06/11/[address]: AYLA Millan : 1960 BED: DIS: 06/11/2024 SPEC #: [id number] RECD: 06/11/24 12:53 STATUS: DANIEL REQ #: [id number] HARPREET: 06/11/24 08:[address]: Mira Rizzo DEPT: [facility] Cytology RECD BY: Desiree Saleem Tissues: 1 - CX/ENDOCX FOR PAP SMEARS Procedures: PAP THIN PREP/UVM Screening HPV DNA PROBE Comments: [id number] (HPV 16 & 18/45)
== END 2024-06-11 08:22 | disposition home or self-care (01) ==
LOC: LBN 08:21
PROVIDERS: PCP Nurse Practitioner Family; Visit Provider Nurse Practitioner Family
DX: N76.0 Acute vaginitis (principal)
CPT/HCPCS: 88142; 87480; 87510; 87624; 87660

== ENCOUNTER 2024-06-28 10:00 | Outpatient (CLI) | payer MEDICAID, SELFPAY ==
--- NOTE | 2024-06-28 11:19 | W.NUTRFU ---
Date of service: 06/28/24 Time of Service: 10:00 Nutrition Note NOTE: Bayron referred to nutrition appointment to address HLD and glucose mgt through diet. 64yo pt who is currently retired and lives at home with . Hx of DMII with last A1c of 6.5% on 06/07 and highest was 7.2% back in 2021. Takes 1,000mg metformin daily and has been recently been put on semaglutide. She also has a Dx of MASLD and HLD with TGL's 340 last month. LDL was 129 and total chol was 242, HDL 45. Pt plays golf 3 times per week with her dad for exercise. She spends time in [place] and admits to having more refined carbs there as it seems to be the culture with all the retired couples. Asked about breakfast which is either special K cereal with almonds and almond milk or intant oats (but mixes rolled oats with it) and half a packet of the flavoring packet and also makes with almond milk. this led us into discussion about added sugar, refinement of starches,fiber and getting adequate protein and fiber. I encouraged more like 30g protein at breakfast and shared that these options don't even provide 10g most likely. I reviewed some menu planning resources and shared with bayron how to enter in some paramenters for her menu planning: ~1600kcals, 120g protein, 160 grams total carbs, 53 g fat, with no more than 16 g added sugar and 16 g SFA. Also aiming for at least 25g fiber. Showed her how to enter this in and edit menus for her preferences. Encouraged strength training along with any bumps up in activity. Initial assessment includes nutrition dx of inadequate intake of protein and fiber on many days as well as excessive refined carbohydrate intake Bayron left with resources and my contact info should she desire follow up or have any questions. Time Spent in Nutritional Counseling and Treatment: 45 min
== END 2024-06-28 10:45 | disposition home or self-care (01) ==
LOC: DS 06-29 06:16
PROVIDERS: PCP Nurse Practitioner Family; Visit Provider Dietitian, Registered
DX: E11.9 Type 2 diabetes mellitus without complications (principal); E78.5 Hyperlipidemia, unspecified
CPT/HCPCS: 00123; 97802

== ENCOUNTER 2024-07-24 16:21 | Outpatient (REF) | payer MEDICAID, SELFPAY | END 2024-07-24 16:22 | disposition home or self-care (01) | LOC: LBN 16:21 | PROVIDERS: PCP Nurse Practitioner Family; Visit Provider Family Medicine | DX: N39.0 Urinary tract infection, site not specified (principal) | CPT/HCPCS: 87077; 87086; 87186 ==

== ENCOUNTER 2024-09-13 02:45 | Outpatient (CLI) | payer MEDICAID, SELFPAY ==
[2024-09-13 12:42] LABS: ALT 63 U/L (14-59); AST 28 U/L (15-37); Albumin 4.0 g/dL (3.4-5.0); Alkaline Phosphatase 82 U/L (46-116); Anion Gap 8.2 mmol/L (3-11); BUN 17 mg/dL (7-18); Bilirubin, Total 0.4 mg/dL (0.2-1.0); CO2 31.8 mmol/L (21.0-32.0); Calcium 9.4 mg/dL (8.5-10.1); Calculated LDL 92 mg/dL (<100); Chloride 100 mmol/L (98-107); Cholesterol 165 mg/dL (<200); Estimated GFR 71.83 (mL/min/1.73m2); Glucose 112 mg/dL (74-106); HDL Cholesterol 46 mg/dL (>or=50); Potassium 3.7 mmol/L (3.5-5.1); Sodium 140 mmol/L (136-145); Total Protein 7.2 g/dL (6.4-8.2); Triglyceride 135 mg/dL (<150)
== END 2024-09-13 02:46 | disposition home or self-care (01) ==
LOC: LOS 02:46
PROVIDERS: PCP Nurse Practitioner Family; Visit Provider Nurse Practitioner Family
DX: E78.5 Hyperlipidemia, unspecified (principal); K76.0 Fatty (change of) liver, not elsewhere classified
CPT/HCPCS: 36415; 80053; 80061

== ENCOUNTER 2024-12-27 00:29 | Outpatient (CLI) | payer MEDICAID, SELFPAY ==
[2024-12-27 13:51] LABS: Abs Immature Grans 0.06 10^3/uL (0.0-0.06); HCT 42.3 % (36.0-46.0); HGB 13.6 g/dL (11.2-15.7); Immature Grans % 0.8 %; MCH 29.5 pg (27.0-33.0); MCHC 32.2 % (32.0-36.0); MCV 92 fL (80-95); MPV 10.4 fL (8.0-11.0); Platelet Count 328 10^3/uL (130-400); RBC 4.61 10^6/uL (3.93-5.22); RDW 12.4 % (11.7-14.6); RDW-SD 40.7 fL; WBC 7.74 10^3/uL (4.4-10.8)
[2024-12-27 14:19] LABS: Hemoglobin A1C 6.2 % (<5.7)
[2024-12-27 14:43] LABS: ALT 39 U/L (14-59); AST 19 U/L (15-37); Albumin 4.0 g/dL (3.4-5.0); Alkaline Phosphatase 85 U/L (46-116); Anion Gap 7.6 mmol/L (3-11); BUN 20 mg/dL (7-18); Bilirubin, Total 0.3 mg/dL (0.2-1.0); CO2 32.4 mmol/L (21.0-32.0); Calcium 9.7 mg/dL (8.5-10.1); Chloride 97 mmol/L (98-107); Cholesterol 196 mg/dL (<200); Glucose 102 mg/dL (74-106); HDL Cholesterol 44 mg/dL (>or=50); Potassium 4.1 mmol/L (3.5-5.1); Sodium 137 mmol/L (136-145); Total Protein 7.6 g/dL (6.4-8.2); Vitamin B12 1028 pg/mL (193-986)
== END 2024-12-27 00:30 | disposition home or self-care (01) ==
LOC: LOS 00:29
PROVIDERS: PCP Nurse Practitioner Family; Visit Provider Nurse Practitioner Family
DX: E11.9 Type 2 diabetes mellitus without complications (principal); K21.9 Gastro-esophageal reflux disease without esophagitis; E78.5 Hyperlipidemia, unspecified
CPT/HCPCS: 36415; 80053; 80061; 82607; 83036; 85025